=== PATIENT | female | born 1990 | race Caucasian/White ===

== ENCOUNTER 2021-08-26 14:31 | Inpatient (IN) ==
[2021-08-26] MEDS ORDERED: DINOPROSTONE 10 MG INSERT PV ONE (15:21)
[2021-08-26] MEDS ORDERED: LACTATED RINGER'S 1,000 ML IV PRN (15:21)
[2021-08-26] MEDS ORDERED: OXYTOCIN 30 UNITS/500 ML BAG IV PRN (15:21)
--- NOTE | 2021-08-26 15:30 | History & Physical Report ---
Date of Service August 26, 2021 Assessment & Plan (1) Post-dates : Plan: Cervidil for cervical ripening (2) Oligohydramnios antepartum: History of Present Illness Chief Complaint: induction of labor for post dates Primary Care Provider: Vasquez Reyes MD 31 F P0000 at 40.5 weeks admitted from office with low fluid and post dates. GBS is negative. Covid is pending. Allergies Allergy/AdvReac Type Severity Reaction Status Date / Time No Known Allergies Allergy Verified 04/12/21 23:04 Home Medications Medication Instructions Recorded Confirmed Type valacyclovir 1 gram tablet 1,000 mg PO Q12H PRN 07/10/18 04/12/21 History (Valtrex) aluminum hydrox-magnesium carb 160 1 tab PO DIRECTED PRN 04/12/21 04/12/21 History mg-105 mg chewable tablet docusate sodium 100 mg capsule 100 mg PO DAILY 04/12/21 04/12/21 History (Colace) fluoxetine 40 mg capsule 40 mg PO DAILY 04/12/21 04/12/21 History hydrocortisone 2.5 % topical cream 1 applic [place] Q6H PRN #30 g 04/12/21 Rx with perineal applicator (Proctosol HC) vit no.95-ferrous 1 tab PO DAILY 04/12/21 04/12/21 History fumarate 28 mg-folic acid 800 mcg tablet () promethazine 25 mg tablet 25 mg PO Q6H PRN 04/12/21 04/12/21 History Patient History Medical History Drug addiction GERD (gastroesophageal reflux disease) History of kidney stones History of pancreatitis Surgical History History of anesthesia reaction HYPERACTIVITY ("CALMED DOWN" WITH RX) S/P EYELID SURGERY CHILD History of eyelid surgery LEFT History of wisdom tooth extraction Family History Father Family history of diabetes mellitus Social History Smoking Status: Never smoker Second Hand Exposure: Yes; Hx Alcohol Use: Yes Alcohol type: wine Hx Substance Use: No Preferred Language: Georgian Communication Ability: Effective 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 Beliefs That Will Affect Care: None marital status: Current Living Situation: Alone Feels Safe at Home: Yes OB History primip [employer] History Herpes history Review of Systems All systems reviewed & are unremarkable except as noted in HPI & below Physical Exam Constitutional: WD/WN, vitals as above Respiratory: normal respiratory effort, lungs clear to auscultation Cardiovascular: RRR, no murmur, no edema Skin: no rashes, warm and dry Neurologic: patellar DTR's 2+ bilat, sensation intact Genitourinary: no vaginal lesions, no adnexal mass normal external appearance OB Exam Abdomen: + fundal height and + vertex Manual OB Exam: + cervical dilation fingertip, + cervical effacement 50% and + station high OB Exam Monitor Tracing: + external FHT monitor used, + external uterine monitor used, + category I and + normal FHT variability Cervix posterior/firm Results & Data ([facility]) Vital Signs (Past 12 Hours) Vital Signs Pulse BP 08/26/21 14:42 114 H 124/82 Code Status & VTE Plan VTE Prophylaxis Plan VTE Prophylaxis will be ordered: No
[2021-08-26 15:56] LABS: Hematocrit (blood only) 37.8 % (37-47); Hemoglobin 12.8 g/dL (12.0-16.0); Mean Corpuscular Hemoglobin 30.1 pg (25-34); Mean Corpuscular Hgb Conc 33.9 g/dL (32-36); Mean Corpuscular Volume 88.9 fL (80-100); Mean Platelet Volume 12.3 fL (7.4-10.4); Platelet Count 143 K/uL (130-400); RDW Coefficient of Variation 14.9 % (11.5-14.5); RDW Standard Deviation 48.4 fL (36.4-46.3); Red Blood Count 4.25 M/uL (4.2-5.4); White Blood Count 8.12 K/uL (4.8-10.8)
--- NOTE | 2021-08-26 17:15 | Labor Progress Brief Note ---
Date of Service August 26, 2021 Assessment & Plan Admission and Anticipated Discharge Date Admission Date: August 26, 2021 Physical Exam Genitourinary: Manual OB Exam: + cervical dilation fingertip, + cervical effacement 50% and + station high OB Exam Monitor Tracing: + external FHT monitor used, + external uterine monitor used, + category I and + normal FHT variability Cervidil 10 mg placed vaginally Results & Data ([facility]) Vital Signs (Past 12 Hours) Vital Signs Temp Pulse Resp BP 08/26/21 17:10 83 142/86 H 08/26/21 14:42 36.7 C 114 H 20 124/82
[2021-08-26] MEDS: FLUoxetine HCL 20 MG CAP PO SCH (23:00)
[2021-08-26] MEDS ORDERED: CALCIUM CARBONATE 500 MG CHEWABLE TAB PO PRN (23:43)
[2021-08-27] MEDS: FAMOTIDINE 20 MG TAB PO SCH ×3 (00:32→21:26)
--- NOTE | 2021-08-27 09:28 | Labor Progress Brief Note ---
Date of Service August 27, 2021 Assessment & Plan Admission and Anticipated Discharge Date Admission Date: August 26, 2021 Physical Exam Genitourinary: OB Exam Monitor Tracing: + external FHT monitor used, + external uterine monitor used, + category I and + normal FHT variability patient not tolerating vaginal exams. Will use Cytotec 50 mcg orally to ripen cervix Results & Data ([facility]) Vital Signs (Past 12 Hours) Vital Signs Temp Pulse Resp BP 08/27/21 07:33 78 133/89 08/27/21 07:32 36.8 C 18 08/27/21 04:05 36.4 C L 18 08/27/21 04:03 78 119/83 08/26/21 23:40 36.5 C 16 08/26/21 23:38 74 125/78
[2021-08-27] MEDS: miSOPROStoL 50 MCG TAB PO SCH ×3 (11:20→20:15)
--- NOTE | 2021-08-27 15:33 | Anesthesiology Progress Note ---
Date of Service August 27, 2021 Anesthesia Post Procedure Vital Signs Vital Signs: Temp Pulse Resp BP 08/27/21 14:52 70 125/74 08/27/21 10:48 70 126/81 08/27/21 10:47 36.8 C 16 08/27/21 07:33 78 133/89 08/27/21 07:32 36.8 C 18 08/27/21 04:05 36.4 C L 18 08/27/21 04:03 78 119/83 08/26/21 23:40 36.5 C 16 08/26/21 23:38 74 125/78 08/26/21 19:12 36.8 C 88 18 127/83 08/26/21 17:10 83 142/86 H Transfer of Care Handoff Completed per policy Notes Mental Status: alert / awake / arousable and participated in evaluation Patient Amnestic to Procedure: Yes Nausea / Vomiting: adequately controlled Pain: adequately controlled Airway Patency, RR, SpO2: stable & adequate BP & HR: stable & adequate Hydration State: stable & adequate Anesthetic Complications: no major complications apparent and Pt Satisfied with anesthetic care
--- NOTE | 2021-08-27 15:34 | Anesthesia Procedure Note ---
Date of Service August 27, 2021 Anesthesia Post Epidural Note Vital Signs Vital Signs: Temp Pulse Resp BP 36.8 C 70 16 125/74 08/27/21 10:47 08/27/21 14:52 08/27/21 10:47 08/27/21 14:52 Notes Mental Status: alert / awake / arousable and participated in evaluation Patient Amnestic to Procedure: Yes Nausea / Vomiting: adequately controlled Pain: adequately controlled Airway Patency, RR, SpO2: stable & adequate BP & HR: stable & adequate Hydration State: stable & adequate Anesthetic Complications: no major complications apparent and Pt Satisfied with anesthetic care
[2021-08-27] MEDS: FLUoxetine HCL 20 MG CAP PO SCH (21:26)
[2021-08-28] MEDS: miSOPROStoL 50 MCG TAB PO SCH ×4 (00:20→23:42)
--- NOTE | 2021-08-28 11:30 | Labor Progress Brief Note ---
Date of Service August 28, 2021 Assessment & Plan (1) Oligohydramnios antepartum: Plan: Induction for oligo and post dates Day #3 pt has received several doses of Cytotec lat pelvic exam: closed/post will start Pitocin augmentation Admission and Anticipated Discharge Date Admission Date: August 26, 2021 Results & Data ([facility]) Vital Signs (Past 12 Hours) Vital Signs Temp Pulse Resp BP Pulse Ox 08/28/21 10:35 76 121/78 08/28/21 09:22 93 H 121/82 08/28/21 08:32 77 99 08/28/21 08:27 84 98 08/28/21 08:22 86 97 08/28/21 08:17 83 97 08/28/21 08:12 77 94 08/28/21 08:11 72 94 08/28/21 08:07 72 95 08/28/21 08:03 74 94 08/28/21 08:02 74 96 08/28/21 07:08 75 134/87 08/28/21 03:29 36.5 C 70 16 120/58 L
[2021-08-28] MEDS: OXYTOCIN 30 UNITS/500 ML BAG IV PRN ×2 (13:55→19:18)
[2021-08-28] MEDS ORDERED: Nursing to Pharmacy Communication SCH (18:45)
[2021-08-28] MEDS: FAMOTIDINE 20 MG TAB PO SCH ×2 (19:25→22:06)
[2021-08-28] MEDS: LACTATED RINGER'S 1,000 ML IV SCH (21:00)
[2021-08-28] MEDS: FLUoxetine HCL 20 MG CAP PO SCH (22:06)
[2021-08-28] MEDS ORDERED: fentaNYL citrate 100 MCG/2 ML VIAL ONE (22:47)
[2021-08-28] MEDS ORDERED: BUPIVACAINE 0.25% 30 ML VIAL ONE (22:47)
[2021-08-28] MEDS ORDERED: SODIUM CHLORIDE 0.9% INJ 10 ML VIAL ONE (22:47)
[2021-08-28] MEDS ORDERED: ePHEDrine sulfate 50 MG/ML AMP ONE (22:47)
[2021-08-28] MEDS ORDERED: fentaNYL 2MCG/ML ROPIVACAINE 1.25MG/ML 100 ML BAG EPI ONE (22:48)
[2021-08-28] MEDS ORDERED: NALOXONE HCL 1 MG in SODIUM CHLORIDE 0.9% 1000ML 1,000 ML IV PRN (22:59)
[2021-08-28] MEDS ORDERED: NALBUPHINE HCL INJ 10 MG/ML AMP IV PRN (22:59)
[2021-08-28] MEDS ORDERED: diphenhydrAMINE 50 MG/ML VIAL IV PRN (22:59)
[2021-08-28] MEDS ORDERED: NALOXONE HCL 0.4 MG/1 ML VIAL/CARP IV PRN (22:59)
[2021-08-28] MEDS ORDERED: ePHEDrine sulfate 50 MG/ML AMP IV PRN (22:59)
--- NOTE | 2021-08-28 22:59 | Anesthesiology Consultation ---
Date of Service August 28, 2021 Assessment & Plan ASA ASA2 Proposed Anesthesia Anesthesia Type: Labor Epidural Risk / Benefits Reviewed With: PT / POA / Parent / Guardian, Accepts Plan and Informed Consent Obtained History Height/Weight Height: 5 ft 7 in Weight: 80.286 kg Allergies Allergy/AdvReac Type Severity Reaction Status Date / Time No Known Allergies Allergy Verified 08/26/21 17:28 Medications Home Medications Medication Instructions Recorded Confirmed Last Taken valacyclovir 1 gram tablet 1,000 mg PO Q12H PRN 07/10/18 08/26/21 08/25/21 21:00 (Valtrex) docusate sodium 100 mg capsule 100 mg PO DAILY 04/12/21 08/26/21 08/25/21 21:00 (Colace) fluoxetine 40 mg capsule 40 mg PO DAILY 04/12/21 08/26/21 08/25/21 21:00 vit no.95-ferrous 1 tab PO DAILY 04/12/21 08/26/21 08/25/21 21:00 fumarate 28 mg-folic acid 800 mcg tablet () promethazine 25 mg tablet 25 mg PO Q6H PRN 04/12/21 08/26/21 08/25/21 21:00 Active Medications Generic Name Dose Route Start Last Admin Trade Name Freq PRN Reason Stop Dose Admin Calcium Carbonate 1,000 mg 08/26/21 23:43 08/26/21 23:57 Calcium Carbonate 500 Mg Chewable Tab PO 09/25/21 23:42 1,000 mg Q4 PRN Administration Indigestion Famotidine 20 mg 08/26/21 23:45 08/28/21 22:06 Famotidine 20 Mg Tab PO 09/25/21 23:44 20 mg BID RANDY Administration Fluoxetine HCl 40 mg 08/26/21 21:35 08/28/21 22:06 Fluoxetine Hcl 20 Mg Cap PO 09/25/21 21:34 40 mg HS RANDY Administration Oxytocin 30 units in 500 mls @ 26 mls/hr 08/28/21 10:41 08/28/21 21:20 Pitocin IV 09/27/21 10:40 1.68 units/hr .[id number] PRN 28 mls/hr Labor Induction/Augmentation Titration Protocol 1.56 UNITS/HR Lactated Ringer's 1,000 mls @ 125 mls/hr 08/28/21 20:45 08/28/21 23:19 Lr IV 09/27/21 20:44 125 mls/hr .Q8H RANDY Infusion Misoprostol 50 mcg 08/27/21 12:00 08/28/21 19:24 Misoprostol 50 Mcg Tab PO 09/26/21 11:59 Not Given Q4 RANDY Past Medical History Medical History Drug addiction GERD (gastroesophageal reflux disease) History of kidney stones History of pancreatitis Exercise / Class Metabolic Activity II 4-5 Yardwork/Stairs/Walk up hill Past Family History Family History Father Family history of diabetes mellitus Past Surgical History Surgical History History of anesthesia reaction HYPERACTIVITY ("CALMED DOWN" WITH RX) S/P EYELID SURGERY CHILD History of eyelid surgery LEFT History of wisdom tooth extraction Past Anesthesia History No Hx of Anesthesia Complications and No Family Hx of Anesthesia Complications History of PONV No Hx of PONV and No Hx of Motion Sickness Social History Smoking Status: Former smoker tobacco type: cigarettes Hx Alcohol Use: Yes Alcohol type: wine alcohol intake frequency: holidays/special occasions only Hx Substance Use: Yes substance use type: heroin and opiates Substance Use Type Other:: former heroin user last used 2012 Last Used Substance Other:: 2012 Review of Systems denies fever/cough/ colds/ chest pain/ SOB/ SEDRICK denies SEDRICK Physical Exam Vital Signs Last Vital Signs Temp 36.4 C L 08/28/21 19:10 Pulse 86 08/28/21 23:22 Resp 18 08/28/21 19:10 BP 128/88 08/28/21 23:22 Pulse Ox 97 08/28/21 23:20 ENMT Mouth: no TMJ abnormality and no dentition abnormality Thyromental Distance: > or= 3.5 Finger Breadths Mallampati Class: II Neck neck extension not limited Respiratory normal respiratory effort; no respiratory distress Auscultation: lungs clear to auscultation bilaterally Cardiovascular Rate/Rhythm: regular rate and regular rhythm Neurologic moves all extremities Psychiatric Orientation: alert and oriented x 3 Testing Laboratory Results 08/26/21 15:34
--- NOTE | 2021-08-29 00:43 | Labor Progress Brief Note ---
Date of Service August 29, 2021 Assessment & Plan (1) Oligohydramnios antepartum: Plan: Induction for oligo Day #3 Pt doing well FHR; CAT1 Ctx ; 1-3 Epidural Analgesia VE; 2-3/thick /post Pit 28 AROM with FSE- Clear fluid decel after AROM resuscitation done with position change Pit d/stephanie fetus returned to baseline Anticipate VD Admission and Anticipated Discharge Date Admission Date: August 26, 2021 Results & Data ([facility]) Vital Signs (Past 12 Hours) Vital Signs Temp Pulse Resp BP Pulse Ox 08/29/21 00:36 72 110/73 08/29/21 00:35 78 95 08/29/21 00:34 79 94 08/29/21 00:30 79 94 08/29/21 00:28 76 94 08/29/21 00:25 93 H 96 08/29/21 00:22 83 134/80 08/29/21 00:20 100 H 97 08/29/21 00:15 82 96 08/29/21 00:13 89 94 08/29/21 00:10 80 96 08/29/21 00:05 90 96 08/29/21 00:04 90 107/75 08/29/21 00:02 74 127/81 08/29/21 00:01 89 94 08/29/21 00:00 86 115/78 94 08/28/21 23:58 73 123/81 08/28/21 23:56 78 115/80 08/28/21 23:55 75 94 08/28/21 23:54 84 114/80 08/28/21 23:52 80 122/77 08/28/21 23:50 83 128/85 95 08/28/21 23:48 88 112/81 94 08/28/21 23:46 82 118/83 08/28/21 23:45 87 95 08/28/21 23:44 88 119/79 08/28/21 23:42 82 114/77 08/28/21 23:40 80 119/78 94 08/28/21 23:39 76 94 08/28/21 23:38 74 124/83 08/28/21 23:36 80 124/81 08/28/21 23:35 81 94 08/28/21 23:34 75 120/80 08/28/21 23:33 80 94 08/28/21 23:32 79 123/84 08/28/21 23:30 88 123/93 98 08/28/21 23:28 74 126/88 08/28/21 23:26 73 126/88 08/28/21 23:25 75 96 08/28/21 23:24 79 124/91 08/28/21 23:22 36.5 C 86 18 128/88 08/28/21 23:20 84 137/94 97 08/28/21 23:18 73 139/91 08/28/21 23:16 86 137/86 08/28/21 23:15 84 98 08/28/21 23:14 83 138/82 08/28/21 23:12 87 94 08/28/21 23:10 76 98 08/28/21 23:07 76 89 L 08/28/21 23:05 80 99 08/28/21 23:00 91 H 100 08/28/21 22:08 75 136/87 08/28/21 21:20 77 128/77 08/28/21 20:27 80 130/77 08/28/21 19:10 36.4 C L 74 18 143/98 H 08/28/21 18:39 72 137/87 08/28/21 18:25 65 148/93 H 08/28/21 18:10 65 144/89 H 08/28/21 18:02 70 150/72 H 08/28/21 17:55 64 165/81 H 08/28/21 17:40 70 180/95 H 08/28/21 17:26 71 123/81 08/28/21 17:11 67 155/88 H 08/28/21 16:55 68 144/91 H 08/28/21 16:44 70 140/84 08/28/21 16:29 80 140/82 08/28/21 16:24 70 133/72 08/28/21 16:09 86 139/78 08/28/21 15:55 66 138/76 08/28/21 15:40 72 119/69 08/28/21 15:24 73 123/70 08/28/21 15:10 67 137/78 08/28/21 15:00 36.6 C 18 08/28/21 14:55 80 122/69 08/28/21 14:41 76 125/71 08/28/21 14:26 83 123/79 08/28/21 14:09 86 133/89 08/28/21 13:54 36.5 C 16
[2021-08-29] MEDS: LACTATED RINGER'S 1,000 ML IV SCH ×2 (01:38→09:32)
[2021-08-29] MEDS: miSOPROStoL 50 MCG TAB PO SCH ×2 (05:38→08:10)
[2021-08-29] MEDS ORDERED: ceFAZolin 2000MG 2,000 MG/15 ML SYR IV SCH (06:00)
[2021-08-29] MEDS: fentaNYL 2MCG/ML ROPIVACAINE 1.25MG/ML 100 ML BAG EPI PRN ×2 (06:39→12:06)
[2021-08-29] MEDS: FAMOTIDINE 20 MG TAB PO SCH ×2 (09:30→21:17)
--- NOTE | 2021-08-29 09:54 | Labor Progress Brief Note ---
Date of Service August 29, 2021 Assessment & Plan (1) Oligohydramnios antepartum: Plan: Induction for Oligo Day #4 FHR; CAT1 Ctx 2-3 AROM X 10hrs VE; 4-5/50/-2 Pit; 26Mu Admission and Anticipated Discharge Date Admission Date: August 26, 2021 Results & Data ([facility]) Vital Signs (Past 12 Hours) Vital Signs Temp Pulse Resp BP Pulse Ox 08/29/21 09:45 93 H 97 08/29/21 09:40 69 95 08/29/21 09:36 67 128/76 08/29/21 09:35 66 96 08/29/21 09:30 86 95 08/29/21 09:25 71 95 08/29/21 09:21 70 128/78 08/29/21 09:20 71 95 08/29/21 09:15 75 94 08/29/21 09:10 74 94 08/29/21 09:07 68 124/77 08/29/21 09:05 77 95 08/29/21 09:00 36.8 C 71 95 08/29/21 08:55 69 95 08/29/21 08:52 68 141/88 H 08/29/21 08:50 71 94 08/29/21 08:45 70 94 08/29/21 08:40 71 95 08/29/21 08:36 73 133/84 08/29/21 08:35 75 95 08/29/21 08:30 81 96 08/29/21 08:25 68 95 08/29/21 08:21 73 114/71 08/29/21 08:20 76 95 08/29/21 08:15 67 95 08/29/21 08:10 80 96 08/29/21 08:05 88 96 08/29/21 08:00 76 96 08/29/21 07:55 89 96 08/29/21 07:51 77 123/84 08/29/21 07:50 75 96 08/29/21 07:45 80 97 08/29/21 07:40 89 96 08/29/21 07:36 75 128/74 08/29/21 07:35 72 96 08/29/21 07:30 78 96 08/29/21 07:25 86 96 08/29/21 07:21 83 137/94 08/29/21 07:20 92 H 95 08/29/21 07:15 85 96 08/29/21 07:10 83 97 08/29/21 07:07 36.6 C 76 18 130/90 97 08/29/21 07:05 76 98 08/29/21 07:00 77 96 08/29/21 06:55 77 97 08/29/21 06:52 80 135/84 08/29/21 06:50 80 97 08/29/21 06:45 75 97 08/29/21 06:40 76 97 08/29/21 06:38 83 123/81 08/29/21 06:35 81 96 08/29/21 06:30 81 97 08/29/21 06:25 113 H 95 08/29/21 06:22 99 H 116/75 08/29/21 06:20 88 95 08/29/21 06:15 75 94 08/29/21 06:10 84 94 08/29/21 06:06 80 121/73 08/29/21 06:05 86 93 08/29/21 06:00 82 94 08/29/21 05:55 82 94 08/29/21 05:52 70 149/77 H 08/29/21 05:50 77 94 08/29/21 05:45 82 94 08/29/21 05:40 82 94 08/29/21 05:37 77 132/81 08/29/21 05:35 83 94 08/29/21 05:30 80 94 08/29/21 05:25 79 95 08/29/21 05:21 77 117/74 08/29/21 05:20 84 94 08/29/21 05:15 77 94 08/29/21 05:10 82 95 08/29/21 05:07 36.8 C 78 16 113/65 08/29/21 05:05 82 94 08/29/21 05:00 83 94 08/29/21 04:55 85 94 08/29/21 04:51 75 114/62 08/29/21 04:50 81 94 08/29/21 04:45 79 94 08/29/21 04:40 79 94 08/29/21 04:36 85 114/63 08/29/21 04:35 86 94 08/29/21 04:30 77 94 08/29/21 04:25 77 95 08/29/21 04:21 77 124/71 08/29/21 04:20 80 95 08/29/21 04:15 81 95 08/29/21 04:10 81 95 08/29/21 04:06 72 123/72 08/29/21 04:05 81 95 08/29/21 04:00 77 95 08/29/21 03:55 81 95 08/29/21 03:51 80 127/88 08/29/21 03:50 77 95 08/29/21 03:45 94 H 96 08/29/21 03:40 79 96 08/29/21 03:38 76 113/71 08/29/21 03:35 87 94 08/29/21 03:30 87 94 08/29/21 03:25 81 95 08/29/21 03:21 78 128/75 08/29/21 03:20 79 95 08/29/21 03:15 85 96 08/29/21 03:13 36.9 C 08/29/21 03:10 83 95 08/29/21 03:09 85 94 08/29/21 03:07 80 114/71 08/29/21 03:05 82 94 08/29/21 03:04 93 H 94 08/29/21 03:00 81 94 08/29/21 02:59 93 H 94 08/29/21 02:55 90 95 08/29/21 02:54 81 94 08/29/21 02:52 80 118/76 08/29/21 02:50 80 95 08/29/21 02:48 90 94 08/29/21 02:45 83 94 08/29/21 02:43 83 94 08/29/21 02:40 76 94 08/29/21 02:38 84 94 08/29/21 02:36 90 120/77 08/29/21 02:35 87 95 08/29/21 02:32 86 94 08/29/21 02:30 81 95 08/29/21 02:26 76 94 08/29/21 02:25 78 95 08/29/21 02:21 77 118/77 08/29/21 02:20 80 95 08/29/21 02:15 79 94 08/29/21 02:11 80 94 08/29/21 02:10 81 95 08/29/21 02:08 76 115/78 06/26/22 02:06 89 94 08/29/21 02:05 85 94 08/29/21 02:00 83 95 08/29/21 01:56 90 94 08/29/21 01:55 80 95 08/29/21 01:52 76 122/83 08/29/21 01:51 82 94 08/29/21 01:50 79 95 08/29/21 01:45 86 95 08/29/21 01:40 79 95 08/29/21 01:37 76 124/82 08/29/21 01:35 79 95 08/29/21 01:32 77 94 08/29/21 01:30 81 95 08/29/21 01:25 76 95 08/29/21 01:22 80 125/84 08/29/21 01:20 92 H 95 08/29/21 01:15 76 94 08/29/21 01:14 80 94 08/29/21 01:10 82 94 08/29/21 01:09 80 94 08/29/21 01:07 36.6 C 81 18 114/76 08/29/21 01:05 76 94 08/29/21 01:04 80 94 08/29/21 01:00 77 94 08/29/21 00:58 79 94 08/29/21 00:55 87 96 08/29/21 00:53 78 94 08/29/21 00:52 77 122/77 08/29/21 00:50 79 95 08/29/21 00:46 75 94 08/29/21 00:45 81 95 08/29/21 00:40 78 94 08/29/21 00:39 79 94 08/29/21 00:36 72 110/73 08/29/21 00:35 78 95 08/29/21 00:34 79 94 08/29/21 00:30 79 94 08/29/21 00:28 76 94 08/29/21 00:25 93 H 96 08/29/21 00:22 83 134/80 06 00:20 100 H 97 08/29/21 00:15 82 96 08/29/21 00:13 89 94 08/29/21 00:10 80 96 08/29/21 00:05 90 96 08/29/21 00:04 90 107/75 08/29/21 00:02 74 127/81 08/29/21 00:01 89 94 08/29/21 00:00 86 115/78 94 08/28/21 23:58 73 123/81 08/28/21 23:56 78 115/80 08/28/21 23:55 75 94 08/28/21 23:54 84 114/80 08/28/21 23:52 80 122/77 08/28/21 23:50 83 128/85 95 08/28/21 23:48 88 112/81 94 08/28/21 23:46 82 118/83 08/28/21 23:45 87 95 08/28/21 23:44 88 119/79 08/28/21 23:42 82 114/77 08/28/21 23:40 80 119/78 94 08/28/21 23:39 76 94 08/28/21 23:38 74 124/83 08/28/21 23:36 80 124/81 08/28/21 23:35 81 94 08/28/21 23:34 75 120/80 08/28/21 23:33 80 94 08/28/21 23:32 79 123/84 08/28/21 23:30 88 123/93 98 08/28/21 23:28 74 126/88 08/28/21 23:26 73 126/88 08/28/21 23:25 75 96 08/28/21 23:24 79 124/91 08/28/21 23:22 36.5 C 86 18 128/88 08/28/21 23:20 84 137/94 97 08/28/21 23:18 73 139/91 08/28/21 23:16 86 137/86 08/28/21 23:15 84 98 08/28/21 23:14 83 138/82 08/28/21 23:12 87 94 08/28/21 23:10 76 98 08/28/21 23:07 76 89 L 08/28/21 23:05 80 99 08/28/21 23:00 91 H 100 08/28/21 22:08 75 136/87
--- NOTE | 2021-08-29 12:22 | Labor Progress Brief Note ---
Date of Service August 29, 2021 Assessment & Plan (1) Oligohydramnios antepartum: Plan: Pt doing well FHR ; CAT2 Pit 29mu VE; Unchanged 4-5/50/-2 Ctx 2-3 FSE placed if FHR is not improved from CAT II to CAT I, will proceed to c/sec Discussed plan with lona florentino and dell lerma Admission and Anticipated Discharge Date Admission Date: August 26, 2021 Results & Data ([facility]) Vital Signs (Past 12 Hours) Vital Signs Temp Pulse Resp BP Pulse Ox 08/29/21 12:15 76 97 08/29/21 12:10 85 97 08/29/21 12:09 75 128/78 08/29/21 12:05 78 97 08/29/21 12:04 84 85 L 08/29/21 12:00 77 96 08/29/21 11:55 73 96 08/29/21 11:52 70 122/73 08/29/21 11:50 65 96 08/29/21 11:45 68 96 08/29/21 11:41 70 90 08/29/21 11:40 66 97 08/29/21 11:36 71 135/86 08/29/21 11:35 69 96 08/29/21 11:30 72 97 08/29/21 11:25 64 97 08/29/21 11:21 36.9 C 75 18 135/86 97 08/29/21 11:20 87 96 08/29/21 11:15 95 H 97 08/29/21 11:10 62 97 08/29/21 11:06 64 141/91 H 08/29/21 11:05 64 97 08/29/21 11:00 70 97 08/29/21 10:55 76 96 08/29/21 10:52 63 133/84 08/29/21 10:50 71 96 08/29/21 10:45 86 97 08/29/21 10:40 72 95 08/29/21 10:36 70 124/69 08/29/21 10:35 72 94 08/29/21 10:30 68 94 08/29/21 10:25 71 94 08/29/21 10:21 69 133/76 08/29/21 10:20 70 95 08/29/21 10:15 75 95 08/29/21 10:10 72 95 08/29/21 10:07 69 127/72 08/29/21 10:05 71 95 08/29/21 10:00 69 96 08/29/21 09:55 70 95 08/29/21 09:51 68 116/70 08/29/21 09:50 73 96 08/29/21 09:45 93 H 97 08/29/21 09:40 69 95 08/29/21 09:36 67 128/76 08/29/21 09:35 66 96 08/29/21 09:30 86 95 08/29/21 09:25 71 95 08/29/21 09:21 70 128/78 08/29/21 09:20 71 95 08/29/21 09:15 75 94 08/29/21 09:10 74 94 08/29/21 09:07 36.8 C 68 18 124/77 95 08/29/21 09:05 77 95 08/29/21 09:00 36.8 C 71 95 08/29/21 08:55 69 95 08/29/21 08:52 68 141/88 H 08/29/21 08:50 71 94 08/29/21 08:45 70 94 08/29/21 08:40 71 95 08/29/21 08:36 73 133/84 08/29/21 08:35 75 95 08/29/21 08:30 81 96 08/29/21 08:25 68 95 08/29/21 08:21 73 114/71 08/29/21 08:20 76 95 08/29/21 08:15 67 95 08/29/21 08:10 80 96 08/29/21 08:05 88 96 08/29/21 08:00 76 96 08/29/21 07:55 89 96 08/29/21 07:51 77 123/84 08/29/21 07:50 75 96 08/29/21 07:45 80 97 08/29/21 07:40 89 96 08/29/21 07:36 75 128/74 08/29/21 07:35 72 96 08/29/21 07:30 78 96 08/29/21 07:25 86 96 08/29/21 07:21 83 137/94 08/29/21 07:20 92 H 95 08/29/21 07:15 85 96 08/29/21 07:10 83 97 08/29/21 07:07 36.6 C 76 18 130/90 97 08/29/21 07:05 76 98 08/29/21 07:00 77 96 08/29/21 06:55 77 97 08/29/21 06:52 80 135/84 08/29/21 06:50 80 97 08/29/21 06:45 75 97 08/29/21 06:40 76 97 08/29/21 06:38 83 123/81 08/29/21 06:35 81 96 08/29/21 06:30 81 97 08/29/21 06:25 113 H 95 08/29/21 06:22 99 H 116/75 08/29/21 06:20 88 95 08/29/21 06:15 75 94 08/29/21 06:10 84 94 08/29/21 06:06 80 121/73 08/29/21 06:05 86 93 08/29/21 06:00 82 94 08/29/21 05:55 82 94 08/29/21 05:52 70 149/77 H 08/29/21 05:50 77 94 08/29/21 05:45 82 94 08/29/21 05:40 82 94 08/29/21 05:37 77 132/81 08/29/21 05:35 83 94 08/29/21 05:30 80 94 08/29/21 05:25 79 95 08/29/21 05:21 77 117/74 08/29/21 05:20 84 94 08/29/21 05:15 77 94 08/29/21 05:10 82 95 08/29/21 05:07 36.8 C 78 16 113/65 08/29/21 05:05 82 94 08/29/21 05:00 83 94 08/29/21 04:55 85 94 08/29/21 04:51 75 114/62 08/29/21 04:50 81 94 08/29/21 04:45 79 94 08/29/21 04:40 79 94 08/29/21 04:36 85 114/63 08/29/21 04:35 86 94 08/29/21 04:30 77 94 08/29/21 04:25 77 95 08/29/21 04:21 77 124/71 08/29/21 04:20 80 95 08/29/21 04:15 81 95 08/29/21 04:10 81 95 08/29/21 04:06 72 123/72 08/29/21 04:05 81 95 08/29/21 04:00 77 95 06 03:55 81 95 08/29/21 03:51 80 127/88 08/29/21 03:50 77 95 08/29/21 03:45 94 H 96 08/29/21 03:40 79 96 08/29/21 03:38 76 113/71 08/29/21 03:35 87 94 08/29/21 03:30 87 94 08/29/21 03:25 81 95 08/29/21 03:21 78 128/75 08/29/21 03:20 79 95 08/29/21 03:15 85 96 08/29/21 03:13 36.9 C 08/29/21 03:10 83 95 08/29/21 03:09 85 94 08/29/21 03:07 80 114/71 08/29/21 03:05 82 94 08/29/21 03:04 93 H 94 08/29/21 03:00 81 94 08/29/21 02:59 93 H 94 08/29/21 02:55 90 95 08/29/21 02:54 81 94 08/29/21 02:52 80 118/76 08/29/21 02:50 80 95 08/29/21 02:48 90 94 08/29/21 02:45 83 94 08/29/21 02:43 83 94 08/29/21 02:40 76 94 08/29/21 02:38 84 94 08/29/21 02:36 90 120/77 08/29/21 02:35 87 95 08/29/21 02:32 86 94 08/29/21 02:30 81 95 08/29/21 02:26 76 94 08/29/21 02:25 78 95 08/29/21 02:21 77 118/77 08/29/21 02:20 80 95 08/29/21 02:15 79 94 08/29/21 02:11 80 94 08/29/21 02:10 81 95 08/29/21 02:08 76 115/78 08/29/21 02:06 89 94 08/29/21 02:05 85 94 06/26/22 02:00 83 95 08/29/21 01:56 90 94 08/29/21 01:55 80 95 08/29/21 01:52 76 122/83 08/29/21 01:51 82 94 08/29/21 01:50 79 95 08/29/21 01:45 86 95 08/29/21 01:40 79 95 08/29/21 01:37 76 124/82 08/29/21 01:35 79 95 08/29/21 01:32 77 94 08/29/21 01:30 81 95 08/29/21 01:25 76 95 08/29/21 01:22 80 125/84 08/29/21 01:20 92 H 95 08/29/21 01:15 76 94 08/29/21 01:14 80 94 08/29/21 01:10 82 94 08/29/21 01:09 80 94 08/29/21 01:07 36.6 C 81 18 114/76 08/29/21 01:05 76 94 08/29/21 01:04 80 94 08/29/21 01:00 77 94 08/29/21 00:58 79 94 08/29/21 00:55 87 96 08/29/21 00:53 78 94 08/29/21 00:52 77 122/77 08/29/21 00:50 79 95 08/29/21 00:46 75 94 08/29/21 00:45 81 95 08/29/21 00:40 78 94 08/29/21 00:39 79 94 08/29/21 00:36 72 110/73 08/29/21 00:35 78 95 08/29/21 00:34 79 94 08/29/21 00:30 79 94 08/29/21 00:28 76 94 08/29/21 00:25 93 H 96 08/29/21 00:22 83 134/80
--- NOTE | 2021-08-29 15:38 | Labor Progress Brief Note ---
Date of Service August 29, 2021 Assessment & Plan (1) Oligohydramnios antepartum: Plan: Pt doing well FHR; CAT1 VE; 4-5cm/ 50%/-2 exam is unchanged discussed c/sec with pt discussed and reviewed risk and benefits os of surgery to Pt and spouse both agreed consent obtained Admission and Anticipated Discharge Date Admission Date: August 26, 2021 Results & Data ([facility]) Vital Signs (Past 12 Hours) Vital Signs Temp Pulse Resp BP Pulse Ox 08/29/21 15:31 96 H 113/76 08/29/21 15:30 96 H 97 08/29/21 15:25 81 97 08/29/21 15:21 86 137/93 08/29/21 15:20 96 H 94 08/29/21 15:15 82 96 08/29/21 15:10 105 H 96 08/29/21 15:08 91 H 18 140/96 08/29/21 15:05 109 H 92 08/29/21 15:00 117 H 97 08/29/21 14:58 78 89 L 08/29/21 14:55 91 H 97 08/29/21 14:53 93 H 115/77 08/29/21 14:51 78 89 L 08/29/21 14:50 81 96 08/29/21 14:45 69 96 08/29/21 14:40 78 97 08/29/21 14:37 82 91 08/29/21 14:36 78 128/84 08/29/21 14:35 78 95 08/29/21 14:30 73 20 96 08/29/21 14:25 72 95 08/29/21 14:22 70 137/86 08/29/21 14:20 70 95 08/29/21 14:15 66 96 08/29/21 14:10 80 96 08/29/21 14:06 86 18 127/90 08/29/21 14:05 90 97 08/29/21 14:00 77 20 97 08/29/21 13:55 90 95 08/29/21 13:51 77 120/78 08/29/21 13:50 81 94 08/29/21 13:45 86 94 08/29/21 13:40 74 95 08/29/21 13:36 79 117/73 08/29/21 13:35 87 95 08/29/21 13:30 82 96 06/26/22 13:25 85 97 08/29/21 13:21 78 123/81 08/29/21 13:20 80 97 08/29/21 13:15 84 96 08/29/21 13:10 74 97 08/29/21 13:08 75 20 132/88 08/29/21 13:05 85 96 08/29/21 13:00 36.8 C 76 20 97 08/29/21 12:55 84 140/85 98 08/29/21 12:53 83 130/100 08/29/21 12:50 77 97 08/29/21 12:45 71 96 08/29/21 12:40 75 96 08/29/21 12:35 71 96 08/29/21 12:30 70 20 96 08/29/21 12:25 74 97 08/29/21 12:21 78 133/86 08/29/21 12:20 71 97 08/29/21 12:15 76 97 08/29/21 12:10 85 97 08/29/21 12:09 75 18 128/78 08/29/21 12:05 78 97 08/29/21 12:04 84 85 L 08/29/21 12:00 77 96 08/29/21 11:55 73 96 08/29/21 11:52 70 122/73 08/29/21 11:50 65 96 08/29/21 11:45 68 96 08/29/21 11:41 70 90 08/29/21 11:40 66 97 08/29/21 11:36 71 135/86 08/29/21 11:35 69 96 08/29/21 11:30 72 97 08/29/21 11:25 64 97 08/29/21 11:21 36.9 C 75 18 135/86 97 08/29/21 11:20 87 96 08/29/21 11:15 95 H 97 08/29/21 11:10 62 97 08/29/21 11:06 64 141/91 H 08/29/21 11:05 64 97 08/29/21 11:00 70 97 08/29/21 10:55 76 96 08/29/21 10:52 63 133/84 08/29/21 10:50 71 96 08/29/21 10:45 86 97 08/29/21 10:40 72 95 06/26/22 10:36 70 124/69 08/29/21 10:35 72 94 08/29/21 10:30 68 94 08/29/21 10:25 71 94 08/29/21 10:21 69 133/76 08/29/21 10:20 70 95 08/29/21 10:15 75 95 08/29/21 10:10 72 95 08/29/21 10:07 69 127/72 08/29/21 10:05 71 95 08/29/21 10:00 69 96 08/29/21 09:55 70 95 08/29/21 09:51 68 116/70 08/29/21 09:50 73 96 08/29/21 09:45 93 H 97 08/29/21 09:40 69 95 08/29/21 09:36 67 128/76 08/29/21 09:35 66 96 08/29/21 09:30 86 95 08/29/21 09:25 71 95 08/29/21 09:21 70 128/78 08/29/21 09:20 71 95 08/29/21 09:15 75 94 08/29/21 09:10 74 94 08/29/21 09:07 36.8 C 68 18 124/77 95 08/29/21 09:05 77 95 08/29/21 09:00 36.8 C 71 95 08/29/21 08:55 69 95 08/29/21 08:52 68 141/88 H 08/29/21 08:50 71 94 08/29/21 08:45 70 94 08/29/21 08:40 71 95 08/29/21 08:36 73 133/84 08/29/21 08:35 75 95 08/29/21 08:30 81 96 08/29/21 08:25 68 95 08/29/21 08:21 73 114/71 08/29/21 08:20 76 95 08/29/21 08:15 67 95 08/29/21 08:10 80 96 08/29/21 08:05 88 96 08/29/21 08:00 76 96 08/29/21 07:55 89 96 08/29/21 07:51 77 123/84 08/29/21 07:50 75 96 08/29/21 07:45 80 97 08/29/21 07:40 89 96 08/29/21 07:36 75 128/74 08/29/21 07:35 72 96 06 07:30 78 96 08/29/21 07:25 86 96 08/29/21 07:21 83 137/94 08/29/21 07:20 92 H 95 08/29/21 07:15 85 96 08/29/21 07:10 83 97 08/29/21 07:07 36.6 C 76 18 130/90 97 08/29/21 07:05 76 98 08/29/21 07:00 77 96 08/29/21 06:55 77 97 08/29/21 06:52 80 135/84 08/29/21 06:50 80 97 08/29/21 06:45 75 97 08/29/21 06:40 76 97 08/29/21 06:38 83 123/81 08/29/21 06:35 81 96 08/29/21 06:30 81 97 08/29/21 06:25 113 H 95 08/29/21 06:22 99 H 116/75 08/29/21 06:20 88 95 08/29/21 06:15 75 94 08/29/21 06:10 84 94 08/29/21 06:06 80 121/73 08/29/21 06:05 86 93 08/29/21 06:00 82 94 08/29/21 05:55 82 94 08/29/21 05:52 70 149/77 H 08/29/21 05:50 77 94 08/29/21 05:45 82 94 08/29/21 05:40 82 94 08/29/21 05:37 77 132/81 08/29/21 05:35 83 94 08/29/21 05:30 80 94 08/29/21 05:25 79 95 08/29/21 05:21 77 117/74 08/29/21 05:20 84 94 08/29/21 05:15 77 94 08/29/21 05:10 82 95 08/29/21 05:07 36.8 C 78 16 113/65 08/29/21 05:05 82 94 08/29/21 05:00 83 94 08/29/21 04:55 85 94 08/29/21 04:51 75 114/62 08/29/21 04:50 81 94 08/29/21 04:45 79 94 08/29/21 04:40 79 94 08/29/21 04:36 85 114/63 08/29/21 04:35 86 94 08/29/21 04:30 77 94 08/29/21 04:25 77 95 08/29/21 04:21 77 124/71 08/29/21 04:20 80 95 08/29/21 04:15 81 95 08/29/21 04:10 81 95 08/29/21 04:06 72 123/72 08/29/21 04:05 81 95 08/29/21 04:00 77 95 08/29/21 03:55 81 95 08/29/21 03:51 80 127/88 08/29/21 03:50 77 95 08/29/21 03:45 94 H 96 08/29/21 03:40 79 96 08/29/21 03:38 76 113/71
[2021-08-29] MEDS ORDERED: LACTATED RINGER'S 1,000 ML IV SCH ×3 (15:45→18:15)
[2021-08-29] MEDS ORDERED: CITRIC ACID/SODIUM CITRATE 15 ML UDC PO SCH (16:00)
[2021-08-29] MEDS ORDERED: LIDOCAINE 2%/EPINEPHRINE 1:200,000 20 ML SDV ONE (16:04)
[2021-08-29] MEDS ORDERED: fentaNYL citrate 100 MCG/2 ML VIAL ONE (16:05)
[2021-08-29] MEDS ORDERED: OXYTOCIN 10 UNITS/ML 10ML VIAL ONE (17:05)
[2021-08-29] MEDS ORDERED: METHYLERGONOVINE MALEATE 0.2 MG/ML AMP ONE (17:22)
[2021-08-29] MEDS ORDERED: MIDAZOLAM HCL 1 MG/ML 2ML VIAL ONE (17:28)
[2021-08-29] MEDS ORDERED: DEXAMETHASONE SOD INJ 4 MG/ML VIAL ONE (17:31)
[2021-08-29] MEDS ORDERED: ONDANSETRON INJ 2 MG/ML 2 ML VIAL ONE (17:31)
[2021-08-29] MEDS ORDERED: MEPERIDINE HCL 25 MG/ML CARP/VIAL ONE (17:36)
[2021-08-29] MEDS ORDERED: MoRPHine SULFATE PF 1 MG/ML 10 ML AMP/VIAL ONE (17:37)
[2021-08-29] MEDS ORDERED: miSOPROStoL 200 MCG TAB ONE (18:00)
[2021-08-29] MEDS ORDERED: diphenhydrAMINE 50 MG/ML VIAL IV PRN ×2 (18:10→18:13)
[2021-08-29] MEDS ORDERED: IBUPROFEN 600 MG TAB PO PRN (18:10)
[2021-08-29] MEDS ORDERED: BENZOCAINE 20% AER SPR 82.5 GM CAN EXT PRN (18:10)
[2021-08-29] MEDS ORDERED: diphenhydrAMINE Capsule 25 MG CAP PO PRN (18:10)
[2021-08-29] MEDS ORDERED: PROMETHAZINE HCL 25 MG in SODIUM CHLORIDE 0.9% 50 ML IV PRN ×2 (18:10→18:13)
[2021-08-29] MEDS ORDERED: ONDANSETRON INJ 2 MG/ML 2 ML VIAL IV PRN ×2 (18:10→18:13)
[2021-08-29] MEDS ORDERED: SENNA 8.6 MG TAB PO PRN (18:10)
[2021-08-29] MEDS ORDERED: HYDROCORTISONE ACETATE 25 MG SUPP PR PRN (18:10)
[2021-08-29] MEDS ORDERED: MAGNESIUM HYDROXIDE SUSP 30 ML UDC PO PRN (18:10)
[2021-08-29] MEDS ORDERED: DIPHTHERIA/TETANUS/PERTUSSIS 0.5 ML SYR/VIAL IM ONE (18:10)
[2021-08-29] MEDS ORDERED: ePHEDrine sulfate 50 MG/ML AMP IV PRN (18:13)
[2021-08-29] MEDS ORDERED: MoRPHine SULFATE PF 1 MG/ML 10 ML AMP/VIAL EPI ONE (18:13)
[2021-08-29] MEDS ORDERED: NALOXONE HCL 0.08 MG in SYRINGE 1.8 ML IV PRN (18:13)
[2021-08-29] MEDS ORDERED: NALOXONE HCL 0.4 MG/1 ML VIAL/CARP IV PRN (18:13)
[2021-08-29] MEDS ORDERED: LACTATED RINGER'S 500 ML IV PRN (18:13)
[2021-08-29] MEDS ORDERED: NALOXONE HCL 1 MG in SODIUM CHLORIDE 0.9% 1000ML 1,000 ML IV PRN (18:13)
[2021-08-29] MEDS ORDERED: NALBUPHINE HCL INJ 10 MG/ML AMP IV PRN (18:13)
[2021-08-29] MEDS ORDERED: SODIUM CHLORIDE 0.9% 1000ML 1,000 ML IV SCH (18:15)
[2021-08-29] MEDS ORDERED: DC INTRASPINAL MORPHINE SCH (18:15)
[2021-08-29] MEDS ORDERED: NO NARCOTICS OR SEDATIVES SCH (18:15)
--- NOTE | 2021-08-29 18:22 | Anesthesia Procedure Note ---
Date of Service August 29, 2021 Anesthesia Post Epidural Note Vital Signs Vital Signs: Temp Pulse Resp BP Pulse Ox 36.8 C 97 H 18 177/91 H 94 08/29/21 18:15 08/29/21 18:20 08/29/21 18:15 08/29/21 18:14 08/29/21 18:20 Pain Intensity Right Groin: Pain Intensity: 0 Notes Mental Status: alert / awake / arousable Nausea / Vomiting: adequately controlled Pain: adequately controlled Airway Patency, RR, SpO2: stable & adequate BP & HR: stable & adequate Hydration State: stable & adequate Neuraxial Anesthesia: was administered and sensory block is resolving Anesthetic Complications: no major complications apparent Epidural: Removed without complications and With tip intact
[2021-08-29] MEDS ORDERED: KETOROLAC 30 MG/ML VIAL ONE (18:24)
[2021-08-29] MEDS: KETOROLAC 30 MG/ML VIAL IV PRN (18:25)
[2021-08-29 18:42] LABS: Base Excess Cord Arterial Bld -3.1 mEq/L (-9-1.8); CO2 Cord Arterial Blood 59 mmHg (39.1-73.5); HCO3 Cord Arterial Blood 25 mmol/L (19.7-28.5); Oxygen Sat Cord Arterial Blood < 60.0 % (<60); PO2 Cord Arterial Blood 14 mmHg (4.1-31.7); pH Cord Arterial Blood 7.24 (7.1-7.38)
[2021-08-29 18:43] LABS: Cord Venous Blood HCO3 24 mmol/L (18.4-26.8); Cord Venous Blood PCO2 43 mmHg (30.4-57.2); Cord Venous Blood PO2 31 mmHg (14.1-43.3); Cord Venous Blood pH 7.35 (7.20-7.44); O2 Saturation Cord Venous Bld < 60.0 % (<68)
[2021-08-29] MEDS ORDERED: HYDROmorphone INJ 0.5 MG/0.5 ML SYR IV STA (18:46)
[2021-08-29] MEDS: HYDROmorphone INJ 0.5 MG/0.5 ML SYR IV PRN (20:51)
[2021-08-29] MEDS: OXYTOCIN 20 UNITS in LACTATED RINGER'S 1,000 ML IV SCH (21:10)
[2021-08-29] MEDS: SIMETHICONE 80 MG CHEW PO SCH (21:17)
[2021-08-29] MEDS: DOCUSATE SODIUM 100 MG CAP PO SCH (21:17)
[2021-08-29] MEDS: FLUoxetine HCL 20 MG CAP PO SCH (22:35)
[2021-08-30] MEDS: HYDROmorphone INJ 0.5 MG/0.5 ML SYR IV PRN (00:42)
--- NOTE | 2021-08-30 02:42 | Operative Report (OR) ---
DATE OF SURGERY: 08/29/2021. INDICATION FOR SURGERY: This is a 31-year-old G1, P0 at term, who was induced for oligohydramnios fr om prolonged gestation. The patient was admitted on 08/26/2021. She received several doses of cervi kodak ripening. On 08/28/2021, she underwent artificial rupture of membranes and started Pitocin augme ntation. Today, the patient arrested at 45 centimeters after several hours. Decision was therefore made to perform a section. PREOPERATIVE DIAGNOSES: 1. Oligohydramnios. 2. Prolonged gestation. 3. Failure to progress. POSTOPERATIVE DIAGNOSES: 1. Oligohydramnios. 2. Prolonged gestation. 3. Failure to progress. SURGEON: Anthony De Oliveira MD [employer] SPECIALIST: Flaca Phan RN ANESTHESIA: Epidural. DRAINS: Redd catheter. ESTIMATED BLOOD LOSS: 600 mL. INTRAVENOUS FLUIDS: 1 liter. URINE OUTPUT: 500 mL of clear urine at the end of the procedure. SPECIMEN: Placenta with cord gases. INTRAOPERATIVE COMPLICATIONS: None. PATIENT CONDITION: Stable. DISPOSITION: Postanesthesia care unit. ATTESTATION: I performed the entire procedure. FINDINGS: Placenta appears to be meconium stained. Uterus, tubes, and ovaries appeared grossly norm al. Rest of the abdominopelvic exam is unremarkable. DESCRIPTION OF PROCEDURE: The patient was taken to the operating room where she was prepped and drap ed in normal sterile fashion and a timeout was called. A Pfannenstiel incision was made and carried down to the fascia. Fascia was incised in the midline, extended laterally on both sides. This was p erformed with Grimm scissors. Radha was used to grab the anterior part of the fascia and dissected o ff the rectus abdominis muscle with Grimm. Same procedure was performed on the lower segment of the f ascia. The rectus abdominis muscle was identified. The mid portion of the abdominus muscle was ente red sharply. Peritoneum was identified and entered sharply. Once the peritoneum was entered, an Nidhi xis retractor was placed for retraction. The vesicouterine peritoneum was identified and dissected o ff the lower segment of the uterus. A low transverse incision was made with a scalpel and extended l aterally on both sides with bandage scissors. Meconium was then identified at this point. 's h ead was delivered. There was nuchal cord x1, which was easily reduced. Cord was clamped and cut and infant was handed over to the waiting pediatric team. Cord gases were obtained. Placenta was manua lly removed and as dictated above, the placenta appeared to be meconium stained. Uterus was exterior ized and cleared of all clots and debris. Uterus was closed in 2 layers with Vicryl stitch. Copious amount of irrigation was used to irrigate the abdomen. Uterus was returned to the abdominal cavity. The peritoneum was reapproximated using plain suture. The rectus abdominis muscle was reapproximat ed together using [id number] sutures. The fascia was identified and closed in a running fashion using Vicryl stitch. Subcutaneous space was irrigated and closed with plain suture. Skin was close d with 4-0 Monocryl. All instruments were removed from the abdomen including retractors, sponges, needles, and accounted f or x2. The patient was sent to recovery in stable condition. Job ID: [id number]
[2021-08-30] MEDS: OXYTOCIN 20 UNITS in LACTATED RINGER'S 1,000 ML IV SCH (05:10)
[2021-08-30 06:28] LABS: Basophils # (auto) 0.01 K/uL (0-0.2); Basophils % (auto) 0.1 %; Hemoglobin 10.3 g/dL (12.0-16.0); Immature Granulocytes # (auto) 0.04 K/uL (0.00-0.02); Immature Granulocytes % (auto) 0.2 %; Lymphocytes # (auto) 1.56 K/uL (1.2-3.4); Mean Corpuscular Hemoglobin 29.4 pg (25-34); Mean Corpuscular Hgb Conc 33.2 g/dL (32-36); Mean Corpuscular Volume 88.6 fL (80-100); Monocytes # (auto) 0.89 K/uL (0.11-0.59); Monocytes % (auto) 5.1 %; Neutrophils % (auto) 85.6 %; Platelet Count 119 K/uL (130-400); Platelet Estimate Decreased (Normal); RDW Coefficient of Variation 15.2 % (11.5-14.5)
[2021-08-30] MEDS: FERROUS SULFATE 325 MG TAB PO SCH (08:58)
[2021-08-30] MEDS: PRENATAL VITAMIN 1 TAB PO SCH (08:58)
[2021-08-30] MEDS: DOCUSATE SODIUM 100 MG CAP PO SCH ×2 (08:58→20:55)
[2021-08-30] MEDS: SIMETHICONE 80 MG CHEW PO SCH ×4 (08:58→20:55)
[2021-08-30] MEDS: FAMOTIDINE 20 MG TAB PO SCH ×2 (09:00→20:54)
--- NOTE | 2021-08-30 09:29 | Obstetrical Progress Note ---
Date of Service August 30, 2021 Assessment & Plan (1) Postop check: POD #1 Pt doing well continue day #1 care Results & Data ([facility]) Vital Signs (Past 12 Hours) Vital Signs Temp Pulse Pulse Resp BP BP Pulse Ox 08/30/21 06:15 14 96 08/30/21 05:13 14 95 08/30/21 04:10 36.6 C 73 16 103/73 98 08/30/21 02:00 16 96 08/30/21 00:15 37.1 C 80 18 109/72 95 08/29/21 23:38 87 94 08/29/21 23:33 94 H 94 08/29/21 23:28 91 H 93 08/29/21 23:23 87 94 08/29/21 23:18 88 93 08/29/21 23:13 84 93 08/29/21 23:08 80 93 08/29/21 23:03 99 H 94 08/29/21 22:58 94 H 94 08/29/21 22:53 95 H 93 08/29/21 22:48 93 H 93 08/29/21 22:43 91 H 93 08/29/21 22:38 112 H 93 08/29/21 22:33 121 H 94 08/29/21 22:29 97 H 87 L 08/29/21 22:28 97 H 95 08/29/21 22:23 101 H 93 08/29/21 22:18 104 H 93 08/29/21 22:13 101 H 94 08/29/21 22:11 18 08/29/21 22:08 99 H 95 08/29/21 22:03 96 H 96 08/29/21 21:58 95 H 96 08/29/21 21:53 96 H 96 08/29/21 21:48 95 H 96 08/29/21 21:43 99 H 96 08/29/21 21:38 95 H 96 08/29/21 21:36 84 124/86 08/29/21 21:33 84 96 08/29/21 21:31 82 130/95
[2021-08-30] MEDS: KETOROLAC 30 MG/ML VIAL IV PRN (11:29)
[2021-08-30] MEDS: oxyCODONE/ACETAMINOPHEN 5mg/325mg TAB PO PRN ×2 (13:00→20:55)
[2021-08-30] MEDS ORDERED: bisacodyL 5 MG TABEC PO SCH (20:00)
[2021-08-30] MEDS: FLUoxetine HCL 20 MG CAP PO SCH (20:54)
[2021-08-31] MEDS: oxyCODONE/ACETAMINOPHEN 5mg/325mg TAB PO PRN ×2 (06:22→12:31)
[2021-08-31 07:02] LABS: Hematocrit (blood only) 24.7 % (37-47); Hemoglobin 8.3 g/dL (12.0-16.0)
[2021-08-31] MEDS: SIMETHICONE 80 MG CHEW PO SCH ×2 (07:50→12:32)
[2021-08-31] MEDS: FERROUS SULFATE 325 MG TAB PO SCH (07:50)
[2021-08-31] MEDS: FAMOTIDINE 20 MG TAB PO SCH (07:51)
[2021-08-31] MEDS: DOCUSATE SODIUM 100 MG CAP PO SCH (07:51)
[2021-08-31] MEDS: PRENATAL VITAMIN 1 TAB PO SCH (07:51)
--- NOTE | 2021-08-31 09:26 | Obstetrical Progress Note ---
Date of Service August 31, 2021 Assessment & Plan (1) Postop check: pt doing well No complaints D/c home with instructions Subjective Ambulation: ambulating normally Voiding: no voiding problems Passing Gas:: Yes Diet Tolerance:: clear liquids Lochia:: Small Feeding Type:: breast feeding Review of Systems All systems reviewed & are unremarkable except as noted in HPI & below Physical Exam Constitutional WD/WN, vitals as above well developed and well nourished Eyes PERRL, conjunctivae normal, anicteric sclerae ENMT external ear and nose normal, oropharynx normal Neck trachea midline, no thyromegaly Respiratory normal respiratory effort, lungs clear to auscultation Cardiovascular RRR, no murmur, no edema Chest (Breasts) normal inspection/palpation of breasts Gastrointestinal (Abdomen) normal bowel sounds, soft, nontender, no hepatosplenomegaly Musculoskeletal no cyanosis or clubbing, extremities motor strength 5/5 Skin no rashes, warm and dry + incision (Clean,dry and intact) Neurologic patellar DTR's 2+ bilat, sensation intact Psychiatric A+Ox3, euthymic affect Genitourinary normal external appearance Lymphatic no cervical or axillary lymphadenopathy Results & Data ([facility]) Vital Signs (Past 12 Hours) Vital Signs Temp Pulse Pulse Resp BP Pulse Ox 08/31/21 07:40 36.7 C 79 18 106/72 08/30/21 23:30 36.7 C 81 81 16 106/66 98
--- NOTE | 2021-08-31 11:40 | Discharge Summary (DS) ---
DATE OF ADMISSION: 08/26/2021. DATE OF DISCHARGE: 08/31/2021. CHIEF COMPLAINT: 1. at term. 2. Oligohydramnios. HISTORY OF PRESENT ILLNESS: This is a 31-year-old G1, P0, who was admitted to [facility] on 08/26/2021 for oligohydramnios and prolonged gestation. The patient underwent induction of labor. On 08/28/2021, she had artificial rupture of membranes and Pitocin augmentation. On 022, she had arrest of dilatation and underwent section. Details of the surgery as well as pediatric information is in the respective notes. On 08/30/2021, the patient met all milestones for day #1. She was able to ambulate, tolerate p.o. food and medications. Today, she is being discharge d home in stable condition. PAST MEDICAL HISTORY: The patient has history of drug addiction, gastroesophageal reflux disease, hi story of kidney stones, history of pancreatitis. PAST SURGICAL HISTORY: History of dental procedure and eye surgery. FAMILY HISTORY: Noncontributory. SOCIAL HISTORY: The patient is and lives with spouse. The patient is a former smoker. Now, denies tobacco, drug or alcohol use. ALLERGIES: No known drug allergies. REVIEW OF SYSTEMS: Negative except as dictated in the HPI. PHYSICAL EXAMINATION: VITAL SIGNS: Blood pressure today is 106/72, pulse of 79, respirations 18, temperature is 36.7. HEART: S1 and S2, regular rhythm and rate. LUNGS: Clear to auscultation bilaterally. ABDOMEN: Nontender, nondistended. Positive bowel sounds. Incision clean, dry and intact. EXTREMITIES: No cyanosis, clubbing or edema. LABORATORY DATA: H and H on 08/31/2021 showed hemoglobin of 8.3, hematocrit of 24.7. CONDITION ON DISCHARGE: Stable. OPERATIONS: Primary section for failure to progress. DISCHARGE DIAGNOSIS: Postoperative after section. PLAN ON DISCHARGE: The patient is discharged home with instructions regarding activity, diet, follow up appointments and medications. Job ID: [id number]
[2021-08-31] MEDS ORDERED: bisacodyL 10 MG SUPP PR PRN (18:10)
== END 2021-08-31 15:10 | disposition home or self-care (01) | DRG 787 ==
LOC: OPB 14:31 → 4S1 14:33 → 4E2 08-30 00:29